=== PATIENT | male | born 1975 | race Caucasian/White ===

== ENCOUNTER → 2017-03-20 | Day surgery (SDC) | payer MEDICARE ==
[~2017-03-20] MED LIST: EXCEDRIN EXTRA1 EAC3; FLONASE 0.05% N16 G1; HYDROCODON-ACE1 EAC4 PO; LISINOPRIL-HCTZ1 T18 PO; MOBIC15 MG PO; MORPHINE SULFAT30 M4 PO; OXYCODONE-ACET1 EAC1 PO; ZESTORETIC 10-1 EAC1; ZESTRIL5 MG PO
--- NOTE | ~2017-03-20 | OR ---
Unit #: [id number] #: [id number] Patient: WENCESLAO LEWIS [id number] [address] [place], [place] [address] [id number] MR#: [id number] NAME: WENCESLAO LEWIS ROOM: Date of Procedure: 03/20/2017 Admission Date: 03/20/2017 Surgeon: Rj Borges M.D. : 1975 Attending Physician: Rj Borges M.D. Primary Care Physician: Kristen Casillas M.D. OPERATIVE REPORT PREOPERATIVE DIAGNOSES Herniated nucleus pulposus, postlumbar fusion, back pain, radiculopathy. POSTOPERATIVE DIAGNOSES Herniated nucleus pulposus, postlumbar fusion, back pain, radiculopathy. PROCEDURE PERFORMED Lumbar epidural steroid injection with intravenous sedation and fluoroscopic guidance for needle localization. INDICATIONS FOR PROCEDURE The patient is a 41-year-old male with return of back and bilateral lower extremity pain due to a known L4-L5 disk extrusion. He also has significant degenerative disk disease at the L2-L3 level. He has been fused from L4 through S1 and from T3 through L1. He is managed medically for this chronic issues and the pain flares in these symptomatic areas. Epidural steroid injections have been very helpful. Last injection was completed 6 months ago. The patient got significant improvement of 60% to 70% initially and has maintained about 40%. Pain was began significantly again, so plan is to repeat an epidural steroid injection. DESCRIPTION OF PROCEDURE The patient was placed in a seated position. Standard monitors were applied. 4 mg of Versed and 100 mcg of fentanyl were given for sedation and anxiolysis, which were adequate. Vital signs remained stable. Sterile prep and drape then of the lumbar area was performed. The skin then at the L3 level was localized with 1% lidocaine. An 18-gauge Rome2rio needle was then advanced via loss of resistance technique and fluoroscopic guidance in toward the epidural space. After confirming proper positioning with fluoroscopy and radiographic contrast, 80 mg of Depo-Medrol and 4 mL of 0.125% bupivacaine were deposited. The patient tolerated the procedure otherwise well and was discharged to the recovery room in stable condition. Dictated by... Rj Borges M.D. LHP/wh[facility]yl Unit #: [id number] #: [id number] Patient: JOSHUAWENCESLAO TD: 03/20/2017 15:22 JOB #: [id number] OPERATIVE REPORT Page 1 of 1 X Rj Borges MD X PROCEDURE OPERATIVE NOTE
== END | disposition home or self-care (01) ==
LOC: CCSC 08:20
DX: M51.16 Intervertebral disc disorders with radiculopathy, lumbar region (principal); I10 Essential (primary) hypertension; M19.90 Unspecified osteoarthritis, unspecified site; Z79.891 Long term (current) use of opiate analgesic; Z79.899 Other long term (current) drug therapy; Z98.1 Arthrodesis status
CPT/HCPCS: J1040; J2250; J3010